=== PATIENT | male | born 1980 | race Caucasian/White ===

== ENCOUNTER 2017-10-20 22:26 | Emergency (ER) | payer BC ==
[~2017-10-20] VITALS: Ht 182.9 cm; Wt 71.7 kg
[2017-10-20] MEDS ORDERED: MEDROLDOSEPACK PO (23:31)
[2017-10-20 23:56] VITALS: BP 153/96
== END 2017-10-20 23:57 | disposition home or self-care (01) ==
LOC: M.ERS 22:26
DX: J03.90 Acute tonsillitis, unspecified (principal)